=== PATIENT | female | born 1965 | race Caucasian/White ===

== ENCOUNTER 2017-06-04 17:29 | Emergency (ER) | payer SELFPAY ==
[2017-06-05] MEDS ORDERED: IBUP1TAB7 PO (11:27)
[2017-06-05] MEDS ORDERED: BACT800T5 PO (11:27)
== END 2017-06-04 19:06 | disposition left against medical advice (07) ==
LOC: EDBD → NED 17:29
DX: Z03.89 Encounter for observation for other suspected diseases and conditions ruled out (principal)
CPT/HCPCS: 99281

== ENCOUNTER 2017-06-05 09:28 | Emergency (ER) | payer SELFPAY ==
[2017-06-05 09:38] VITALS: BP 133/92; PULSE 87; RESP 16; TEMP 98.1; O2SAT 99
[2017-06-05] MEDS ORDERED: BACT800T5 PO (11:27)
[2017-06-05] MEDS ORDERED: IBUP1TAB7 PO (11:27)
--- NOTE | 2017-06-05 11:28 | PD ---
HPI Chief Complaint: Skin Problem Time Seen by Provider: 11:10 Travel History International Travel<30 days: No Contact w/Intl Traveler<30days: No Traveled to known affect area: No History of Present Illness HPI 51-year-old female presents to the emergency department with concern of MRSA to her left index finger from a wound 1 week. 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 reports finger swelling. Denies drainage. Reports decreased range of motion of the finger secondary to swelling and pain, but is able to actively move the finger at all fingers joints. Denies fever, vomiting. Reports nausea. Rates pain 8/10. Has been taking ibuprofen for symptom management. Pain is aggravated with palpation, movement of the finger. Allergies to penicillin, antihistamines. No primary care provider. Denies significant past medical history. Has no other medical complaints. No other modifying factors or associated signs and symptoms. PFSH Social History Tobacco Use: No Allergies-Medications (Allergen,Severity, Reaction): Coded Allergies: Antihistamines - Alkylamine (Verified Allergy, Unknown, 06/05/17) Penicillins (Verified Allergy, Unknown, 06/05/17) Reported Meds & Prescriptions Reported Meds & Active Scripts Active Ibuprofen 800 Mg Tab 800 Mg PO Q6HR PRN Bactrim DS (Sulfamethoxazole-Trimethoprim) 800-160 Mg Tab 1 Tab PO BID 10 Days Review of Systems Except as stated in HPI: all other systems reviewed are Neg Physical Exam Narrative GENERAL: Well-nourished, well-developed patient, in no acute distress ; afebrile, nontoxic-appearing SKIN: There is an indurated area to the distal aspect of the left index finger which measures about 1 cm in diameter. It is fluctuant but there is no pointing or drainage. There is a zone of inflammation around it but no lymphangitis. Finger with range of motion at all finger joints and with minimal edema and erythema. Area with warmth to touch. HEAD: Atraumatic. Normocephalic. EYES: Pupils equal and round. No scleral icterus. No injection or drainage. ENT: Mucosa pink and moist. Airway patent. NECK: Trachea midline. CARDIOVASCULAR: Regular rate. RESPIRATORY: No accessory muscle use. GASTROINTESTINAL: Flat. MUSCULOSKELETAL: No obvious deformities. No clubbing. No cyanosis. No edema. NEUROLOGICAL: Awake and alert. Oriented 3. No obvious cranial nerve deficits. Motor grossly within normal limits. Normal speech. PSYCHIATRIC: Appropriate mood and affect; insight and judgment normal. Data Data Last Documented VS Vital Signs Date Time Temp Pulse Resp B/P (MAP) Pulse Ox O2 Delivery O2 Flow Rate FiO2 06/05/17 09:38 98.1 87 16 133/92 (106) 99 Orders Orders Ed Discharge Order (06/05/17 11:28) Wound Culture And Gram Stain (06/05/17 11:28) Tramadol (Ultram) (06/05/17 11:30) MDM Medical Decision Making Medical Screen Exam Complete: Yes Emergency Medical Condition: Yes Medical Record Reviewed: Yes Differential Diagnosis Abscess, paronychia, home Narrative Course 51-year-old female with an abscess of her left index finger. See my procedure note for incision and drainage. Wound culture pending. Tramadol ordered. Ibuprofen and Bactrim prescribed for home. Instructed patient to follow up with primary care provider. Patient verbalizes understanding and agreement with treatment plan. Patient is medically cleared and stable for discharge. Discussed reasons to return to the emergency department. Patient agrees with treatment plan. The patients vital signs are stable and the patient is stable for outpatient follow-up and treatment. Patient discharged home, stable and in no acute distress. Procedures Procedure Narrative INCISION AND DRAINAGE OF ABSCESS: The area was prepped and was sterilely draped. A number 11 scalpel was used to make a pinpoint incision into the area of the abscess. The abscess was drained, complex loculations were broken down, and irrigated with normal saline. Cultures were obtained. Sterile dressing applied. Patient tolerated well. Diagnosis Primary Impression: Abscess of left index finger Referrals: [facility] [employer] Primary Care Physician Patient Instructions: Abscess (ED), Abscess Follow-up (ED), General Instructions Additional Instructions: Complete full course of antibiotics Warm compresses to the affected area Keep area clean and dry Ibuprofen or Tylenol as directed and as needed for pain and inflammation Follow-up with primary care provider Return to emergency department immediately with worsening of symptoms Med/Other Pt SpecificInfo: Prescription(s) given Scripts Ibuprofen (Ibuprofen) 800 Mg Tab 800 MG PO Q6HR Y for PAIN, #20 TAB 0 Refills Prov: Amy Santiago 06/05/17 Sulfamethoxazole-Trimethoprim (Bactrim DS) 800-160 Mg Tab 1 TAB PO BID for Infection for 10 Days, #20 TAB 0 Refills Prov: Amy Santiago 06/05/17 Disposition: 01 DISCHARGE HOME Condition: Stable Amy Santiago Jun 05, 2017 11:28
[2017-06-05] MEDS ORDERED: traMADol HCL 50 MG TAB PO ONE (11:30)
== END 2017-06-05 11:36 | disposition home or self-care (01) ==
LOC: NEPK 09:28
DX: L02.512 Cutaneous abscess of left hand (principal); B95.62 Methicillin resistant Staphylococcus aureus infection as the cause of diseases classified elsewhere; Z86.14 Personal history of Methicillin resistant Staphylococcus aureus infection
CPT/HCPCS: 26010; 86403; 87070; 87186